=== PATIENT | male | born 1990 | race Caucasian/White ===

== ENCOUNTER 2018-04-17 08:33 | Emergency (ER) | payer OTHER ==
[2018-04-17 09:19] LABS: Absolute Lymphocytes (CBC) 0.8 K/uL (0.7-4.9); Absolute Neutrophil 11.5 K/uL (1.8-8.0); Basophils % 0.3 % (0-1.3); Eosinophils % 0.6 % (0-4.4); Hematocrit 42.7 % (39.6-49.0); Lymphocytes % 5.6 % (15.3-44.8); MCH 29.5 pg (27.0-35.0); MPV 8.5 fL (7.6-11.3); Monocytes % 7.8 % (3.3-12.3); RBC Red Blood Cell Count 4.79 M/uL (4.33-5.43)
[2018-04-17 09:36] LABS: BUN Blood Urea Nitrogen 9 mg/dL (7-18); Bicarbonate 29 mmol/L (21-32); Glucose Level 139 mg/dL (74-106); Sodium Level 140 mmol/L (136-145)
[2018-04-17] MEDS ORDERED: DEXAMETHASONE 4 MG/ML VIAL ONE (09:38)
--- NOTE | 2018-04-17 10:49 | RAD REPORT ---
EXAM DESCRIPTION: CT - CTFBWCON CLINICAL HISTORY: eval for left facial/mandibular abscess;Facial pain Pain and swelling COMPARISON: No comparisons TECHNIQUE: Axial 2 mm thick images of the face were obtained with sagittal and coronal reconstructio n images. All CT scans are performed using dose optimization technique as appropriate and may include automated exposure control or mA/KV adjustment according to patient size. FINDINGS: A very large abscess collection is seen along the left aspect of mandible. The abscess is seen to extend along lingual cortex of the mandibular ramus and into the submandibular region.Along t he lingual cortex of the mandible the abscess is seen to measure 4.6 x 2.3 cm. A component extends in feriorly to communicate with a large abscess pocket inferiorly in the submandibular region measuring 2.7 x 2.0 cm, which communicates with an abscess along the left posterior face soft tissues measuring 2.3 x 2.4 cm. There is marked soft tissue swelling along the left aspect of the face and jaw.The abs cess appears to be caused by a odontogenic source with a large periapical abscess seen involving the left mandibular second molar which demonstrates a pronounced dental kori. Additional dental caries are noted, including a large dental kori involving the left maxillary secon d molar on the left.No airway compromise is seen although there is mild mass effect on the pharynx to the right caused by the inflammatory changes in the left aspect of the face. Fluid is seen as well w ithin the left piriform sinus. No vascular thrombosis. Multiple enlarged bilateral with neck lymph no noemi are present, likely reactive in nature. No evidence of osteomyelitis. No evidence of facial bone fracture. IMPRESSION: Very large submandibular and perimandibular odontogenic abscess on the left as detailed.
[2018-04-17 10:59] LABS: Blood Morphology Comment NOT SEEN (NOT SEEN); Platelet Estimate ADEQ; Urine White Blood Cell Casts OK
[2018-04-17] MEDS ORDERED: CLINDAMYCIN 900MG/D5W 900 MG/50 ML BAG IV ONE (11:06)
--- NOTE | 2018-04-17 11:34 | EDPHYS ---
Physician Documentation [facility] Name: Olman Fillinger Age: 27 yrs Sex: Male : 1990 Arrival Date: 04/17/2018 Time: 08:39 Bed 15 Private MD: ED Physician Denny Sims HPI: 04/17 08:55 This 27 yrs old Male presents to ER via [employer] with complaints of rn Facial Swelling. 08:55 the patient presents with a swollen area of the left jaw. Description: swollen, tense, rn warm. Onset: The symptoms/episode began/occurred 9 day(s) ago. Possible cause(s): unknown. Severity of symptoms: At their worst the symptoms were moderate, in the emergency department the symptoms are unchanged. The patient has not experienced similar symptoms in the past. The patient has been recently seen by a physician:. Reports facial swelling for 9 days, reports feels like getting worse, taking abx, has appt with ENT tomorrow, able to swallow and breath, + pain when opening/closing mouth. . Historical: - Allergies: 08:49 Aspirin; tw2 - Home Meds: 08:49 acetaminophen-codeine 120 mg-12 mg /5 mL (5 mL) Oral soln 5 mL every 4 hours [Active]; tw2 - PMHx: 08:49 None; tw2 - PSHx: 08:49 None; tw2 - Immunization history:: Adult Immunizations. - Social history:: Smoking status: . - Ebola Screening: : Patient denies travel to an Ebola-affected area in the 21 days before illness onset. - Family history:: not pertinent. - Hospitalizations: : No recent hospitalization is reported. ROS: 08:55 Constitutional: Negative for fever, chills, and weight loss, Eyes: Negative for injury, rn pain, redness, and discharge, ENT: + facial swelling Neck: + submandibular swelling Cardiovascular: Negative for chest pain, palpitations, and edema, Respiratory: Negative for shortness of breath, cough, wheezing, and pleuritic chest pain, Abdomen/GI: Negative for abdominal pain, nausea, vomiting, diarrhea, and constipation, Neuro: Negative for headache, weakness, numbness, tingling, and seizure. Exam: 08:55 Constitutional: This is a well developed, well nourished patient who is awake, alert, rn and in no acute distress. Head/Face: Atraumatic. Eyes: Pupils equal round and reactive to light, extra-ocular motions intact. Lids and lashes normal. Conjunctiva and sclera are non-icteric and not injected. Cornea within normal limits. Periorbital areas with no swelling, redness, or edema. ENT: + poor dentition, + left buccal swelling with firmness along left mandibular and submandibular regions, no crepitus, no stridor, + mild trismus Neck: + non-tender anterior cervical LAD, trachea midline Vital Signs: 08:41 BP 123 / 83; Pulse 107; Resp 19; Temp 98.7(O); Pain 10/10; tw2 10:17 BP 100 / 87; Pulse 102; Resp 19; Pulse Ox 98% on R/A; tw2 11:19 BP 91 / 70; Pulse 93; Resp 17; Pulse Ox 97% on R/A; tw2 11:35 BP 105 / 70; Pulse 94; Resp 17; Pulse Ox 97% on R/A; tw2 MDM: 08:43 Patient medically screened. rn 11:31 Differential diagnosis: abscess, cellulitis. Data reviewed: vital signs, nurses notes, weed burner test result(s), radiologic studies, CT scan, and as a result, I will discharge patient. Counseling: I had a detailed discussion with the patient and/or guardian regarding: the historical points, exam findings, and any diagnostic results supporting the discharge/admit diagnosis, lab results, radiology results, the need for outpatient follow up, to return to the emergency department if symptoms worsen or persist or if there are any questions or concerns that arise at home. Response to treatment: the patient's symptoms have mildly improved after treatment, and as a result, I will discharge patient. Special discussion: I discussed with the patient/guardian in detail that at this point there is no indication for admission to the hospital. It is understood, however, that if the symptoms persist or worsen the patient needs to return immediately for re-evaluation. Based on the history and exam findings, there is no indication for further emergent testing or inpatient evaluation. I discussed with the patient/guardian the need to see the ENT specialist for further evaluation of the symptoms. ED course: Pt with large abscess/abscesses of left mandibular region, odontogenic in origin, has been known about, offered him transfer today to [facility] for ENT eval, patient states feels a little better and can wait until tomorrow's appt, no airway obstruction or compression. No stridor. . 04/17 08:52 Order name: CBC with Diff rn 04/17 08:52 Order name: Basic Metabolic Panel rn 04/17 08:52 Order name: CT Facial Bones W/ Con \T\ Mpr; Complete Time: 10:53 rn 04/17 08:52 Order name: CBC with Automated Diff EDMS 04/17 08:52 Order name: Basic Metabolic Panel; Complete Time: 10:17 EDMS 04/17 09:20 Order name: CBC Smear Scan EDMS 04/17 08:52 Order name: IV Start; Complete Time: 09:36 rn Administered Medications: 09:36 Drug: Decadron - Dexamethasone 10 mg Route: IVP; Site: left antecubital; tw2 10:18 Follow up: Response: No adverse reaction tw2 11:04 Drug: Clindamycin 900 mg Route: IVPB; Infused Over: 30 mins; Site: left antecubital; tw2 11:29 Follow up: Response: No adverse reaction; IV Status: Completed infusion tw2 Disposition: 04/17/18 11:33 Discharged to Home. Impression: Multiple facial abscesses, Periapical abscess without sinus. - Condition is Stable. - Discharge Instructions: Skin Abscess, Dental Abscess. - Medication Reconciliation Form, Thank You Letter, Antibiotic Education, Prescription Opioid Use form. - Follow up: Private Physician; When: Tomorrow; Reason: Recheck today's complaints, Re-evaluation by your physician. - Problem is an ongoing problem. - Symptoms have improved. Signatures: Dispatcher [employer] EDMS Denny Sims MD MD rn Wise, Tara, RN RN tw2 Corrections: (The following items were deleted from the chart) 11:41 11:33 04/17/2018 11:33 Discharged to Home. Impression: Multiple facial abscesses; tw2 Periapical abscess without sinus. Condition is Stable. Forms are Medication Reconciliation Form, Thank You Letter, Antibiotic Education, Prescription Opioid Use. Follow up: Private Physician; When: Tomorrow; Reason: Recheck today's complaints, Re-evaluation by your physician. Problem is an ongoing problem. Symptoms have improved. rn
--- NOTE | 2018-04-17 11:34 | ER ---
Nurse's Notes [facility] Name: Olman Choi Age: 27 yrs Sex: Male : 1990 Arrival Date: 04/17/2018 Time: 08:39 Bed 15 Private MD: Diagnosis: Multiple facial abscesses;Periapical abscess without sinus Presentation: 04/17 08:42 Presenting complaint: Patient states: "i have an abscess and i cant wait until my tw2 appointment tomorrow at [facility]". Transition of care: [facility]. Onset of symptoms was April 10, 2018. Risk Assessment: Do you want to hurt yourself or someone else? Patient reports no desire to harm self or others. Initial Sepsis Screen: Does the patient have a suspected source of infection? Yes: Other: appears to be a dental abscess, LEFT jaw is swollen. Initial Sepsis Screen: Does the patient meet any 2 criteria? No. Patient's initial sepsis screen is negative. Care prior to arrival: None. 08:42 Method Of Arrival: [employer]: [place] [employer] tw2 08:42 Acuity: [id number] 3 tw2 08:44 Note pt states "i have been on penicillin and cefazolin for a week now and some tylenol tw2 #3's too". Historical: - Allergies: 08:49 Aspirin; tw2 - Home Meds: 08:49 acetaminophen-codeine 120 mg-12 mg /5 mL (5 mL) Oral soln 5 mL every 4 hours [Active]; tw2 - PMHx: 08:49 None; tw2 - PSHx: 08:49 None; tw2 - Immunization history:: Adult Immunizations. - Social history:: Smoking status: . - Ebola Screening: : Patient denies travel to an Ebola-affected area in the 21 days before illness onset. - Family history:: not pertinent. - Hospitalizations: : No recent hospitalization is reported. Screenin:48 Abuse screen: Denies threats or abuse. Nutritional screening: No deficits noted. tw2 Tuberculosis screening: No symptoms or risk factors identified. Fall Risk None identified. Assessment: 08:45 General: Appears uncomfortable, Behavior is cooperative, appropriate for age. Pain: tw2 Complains of pain in left ear, left cheek, mouth, chin and left jaw. Neuro: Level of Consciousness is awake, alert, obeys commands, Oriented to person, place, time, situation. Cardiovascular: Denies chest pain, shortness of breath, Heart tones S1 S2 Patient's skin is warm and dry. Respiratory: Airway is patent Respiratory effort is even, unlabored, Respiratory pattern is regular, symmetrical, Breath sounds are clear bilaterally. GI: No signs and/or symptoms were reported involving the gastrointestinal system. : No signs and/or symptoms were reported regarding the genitourinary system. EENT: Reports pain in left cheek, mouth, chin and left jaw. Derm: No signs and/or symptoms reported regarding the dermatologic system. Musculoskeletal: Range of motion: intact in all extremities. 08:52 Reassessment: [facility] officer calling lieutenant in charge to see if one arm can be removed tw2 from shackles at this time prior to IV insertion. 10:17 Reassessment: No changes from previously documented assessment. Patient and/or family tw2 updated on plan of care and expected duration. Pain level reassessed. Patient is alert, oriented x 3, equal unlabored respirations, skin warm/dry/pink. 10:58 Reassessment: provider at bedside at this time updating pt as to the results. tw2 11:19 Reassessment: No changes from previously documented assessment. Patient and/or family tw2 updated on plan of care and expected duration. Pain level reassessed. Patient is alert, oriented x 3, equal unlabored respirations, skin warm/dry/pink. 11:39 Reassessment: No changes from previously documented assessment. Patient and/or family tw2 updated on plan of care and expected duration. Pain level reassessed. Patient is alert, oriented x 3, equal unlabored respirations, skin warm/dry/pink. Vital Signs: 08:41 BP 123 / 83; Pulse 107; Resp 19; Temp 98.7(O); Pain 10/10; tw2 10:17 BP 100 / 87; Pulse 102; Resp 19; Pulse Ox 98% on R/A; tw2 11:19 BP 91 / 70; Pulse 93; Resp 17; Pulse Ox 97% on R/A; tw2 11:35 BP 105 / 70; Pulse 94; Resp 17; Pulse Ox 97% on R/A; tw2 ED Course: 08:39 Patient arrived in ED. as 08:41 Adelita Clarke, JULIANO is Primary Nurse. tw2 08:43 Denny Sims MD is Attending Physician. rn 08:43 Triage completed. tw2 08:44 Arm band placed on. tw2 08:47 Bed in low position. Call light in reach. Side rails up X 1. 2 [employer] officers at bedside tw2 at this time, pt remains in a Y shaped shackle around wrists and ankles. Pulse ox on. NIBP on. 09:00 Inserted saline lock: 22 gauge in right antecubital area, using aseptic technique. tw2 Blood collected. Missed attempt(s): 20 gauge in left antecubital area. Bleeding controlled, band aid applied, catheter tip intact. 09:58 CT completed. Patient tolerated procedure well. Patient moved to [place] via wheelchair. Patient moved back from [place]. 10:00 CT Facial Bones W/ Con \\T\\ Mpr In Process Unspecified. EDMS 11:39 No provider procedures requiring assistance completed. IV discontinued, intact, tw2 bleeding controlled, No redness/swelling at site. Pressure dressing applied. Administered Medications: 09:36 Drug: Decadron - Dexamethasone 10 mg Route: IVP; Site: left antecubital; tw2 10:18 Follow up: Response: No adverse reaction tw2 11:04 Drug: Clindamycin 900 mg Route: IVPB; Infused Over: 30 mins; Site: left antecubital; tw2 11:29 Follow up: Response: No adverse reaction; IV Status: Completed infusion tw2 Outcome: 11:33 Discharge ordered by . rn 11:39 Discharged to [employer] tw2 11:39 Condition: stable 11:39 Discharge instructions given to patient, [facility] OFFICERS Instructed on discharge instructions, follow up and referral plans. Demonstrated understanding of instructions, follow-up care, Pt and [employer] correction officers instructed that pt must see an ENT for follow up, pt states "i can wait until tomorrow's appointment" 11:41 Patient left the ED. tw2 Signatures: Dispatcher [employer] Sima Kwok Amelia as Nieto, Roman, MD MD rn Wise, Tara, RN RN tw2
== END 2018-04-17 11:41 | disposition home or self-care (01) ==
LOC: ER 08:33
DX: K04.7 Periapical abscess without sinus (principal); Z88.6 Allergy status to analgesic agent
CPT/HCPCS: 36415; 70487; 76377; 80048; 85025; 96365; 96375; 99284; Q9967